=== PATIENT | male | born 1995 | race Two or more races ===

== ENCOUNTER 2016-04-14 09:38 | Inpatient (IN) | payer OTHER ==
[2016-04-14] MEDS ORDERED: ONDANSETRON 4 MG/2 ML VIAL IVP ONE ×2 (09:44)
[2016-04-14] MEDS ORDERED: NS 1,000 ML IV ONE ×3 (09:44)
[2016-04-14 09:56] LABS: % IMMATURE GRANULYOCYTES 0.3 % (0.0-1.1); ABSOLUTE IMMATURE GRANULOCYTES 0.03 10^3/uL (0.00-0.10); ADD DIFF? NO; ADD MORPH? NO; ADD SCAN? NO; ATYPICAL LYMPHOCYTE FLAG 0 (0-99); FRAGMENT RBC FLAG 0 (0-99); HEMATOCRIT 41.6 % (40.0-51.0); HEMOGLOBIN 14.8 g/dL (13.7-17.5); LEFT SHIFT FLG 0 (0-99); LIPEMIA HEMOLYSIS FLAG 90 (0-99); MEAN CELL HEMOGLOBIN 29.1 pg (27.9-34.1); MEAN CELL HEMOGLOBIN CONCENTR. 35.6 g/dL (32.4-36.7); MEAN CELL VOLUME 81.9 fL (81.5-99.8); MEAN PLATELET VOLUME 10.6 fL (8.7-11.7); PLATELET CLUMPS FLAG 10 (0-99); PLATELET COUNT 205 10^3/uL (150-400); RED BLOOD CELL COUNT 5.08 10^6/uL (4.40-6.38); RED CELL DISTRIBUTION WIDTH 11.9 % (11.5-15.2)
[2016-04-14 10:31] LABS: ALANINE AMINOTRANSFERASE 39 IU/L (21-72); ALBUMIN 3.9 g/dL (3.5-5.0); ALKALINE PHOSPHATASE 104 IU/L (38-126); ANION GAP 13 mEq/L (8-16); ASPARTATE AMINOTRANSFERASE 37 IU/L (17-59); BILIRUBIN,TOTAL 0.5 mg/dL (0.1-1.4); BILIRUBIN-CONJUGATED 0.2 mg/dL (0.0-0.5); BILIRUBIN-UNCONJUGATED 0.3 mg/dL (0.0-1.1); CALCIUM 9.6 mg/dL (8.5-10.4); CARBON DIOXIDE 24 mEq/l (22-31); CHLORIDE 103 mEq/L (97-110); CREATININE 4.2 mg/dL (0.7-1.3); GLOMERULAR FILTRATION RATE 18; GLUCOSE 103 mg/dL (70-100); POTASSIUM 4.6 mEq/L (3.5-5.2); SODIUM 140 mEq/L (134-144); TOTAL PROTEIN 6.9 g/dL (6.3-8.2)
--- NOTE | 2016-04-14 11:29 | CT ---
Unenhanced CT Scan of the Abdomen and Pelvis (Renal Stone Protocol) Clinical History: 21-year-old male with bilateral flank pain with nausea and vomiting for three days. There is no hematuria or pyuria, although the patient is in renal failure with a creatinine of 4.0. Technique: And unenhanced helical CT scan was obtained from lung bases inferiorly to the proximal fem ora with images reformatted at 5.00 and 1.50 mm increments, and reviewed at a variety of window/level settings. Parasagittal and paracoronal reconstructed images were reviewed on the workstation. The DF OV is 33.6 cm. A dose reduction protocol was used. Comparison Study: None. Findings: Unenhanced CT Scan of the Abdomen: The lung bases are clear. There is no pleural or pericardial effus ion. There is a catwalk appearance to the left hepatic lobe terminating anterior to the spleen, a nor mal variant. There are no hepatic, pancreatic, splenic, adrenal, or renal calculi. There is no hydron ephrosis or perinephric inflammation. There is no ascites or pneumoperitoneum. The abdominal aorta an d the IVC are normal in caliber. There is moderate constipation. There is no abnormal small bowel dil atation. The stomach is incompletely distended, which may account for its mildly thickened wall. Ther e is a small amount of intraluminal fluid within the stomach. There is no retroperitoneal or mesenter ic adenopathy. The osseous structures are age-appropriate. Unenhanced CT Scan of the Pelvis: The urinary bladder is moderately distended. The prostate gland and seminal vesicles are normal. There is no urinary bladder calculus or distal ureterolithiasis. The ap pendix is identified on axial series 4 images 182-204, and is normal. There is no free fluid. There a re some shotty inguinal lymph nodes, which are not pathologically enlarged. The osseous structures ar e normal. Impression: 1. There is no evidence of nephrolithiasis or obstructive uropathy. This does not exclude the diagnos is of pyelonephritis or medical renal disease. 2. Moderate constipation. 3. Normal CT appearance of the appendix. Results were discussed with Ry Grajeda PA-C. Attention: This CT examination is specifically designed to evaluate patients who are clinically susp ected of having acute obstructive uropathy. This examination does not use radiographic contrast, and as such, provides only a limited evaluation of the abdomen, pelvis, and retroperitoneum. If there i s further clinical suspicion for pathological conditions other than obstructive uropathy, a complete CT evaluation of the abdomen and pelvis utilizing intravenous, oral, and rectal contrast should be co nsidered. A test result has been communicated to a licensed care provider and documented in [employer], 11:18:41 A M, 04/14/2016, [employer] Message ID [id number].
[2016-04-14 11:32] LABS: COLOR PALE YELLOW; LEUKOCYTE ESTERASE,URINE NEGATIVE (NEGATIVE); NITRITE,URINE NEGATIVE (NEGATIVE)
--- NOTE | 2016-04-14 11:32 | EDPHY ---
H & P Stated Complaint: N/V/D for 3 days & lower back pain - Personal History Current Tetanus/Diphtheria Vaccine: Unsure Current Tetanus Diphtheria and Acellular Pertussis (TDAP): Unsure - Medical/Surgical History Hx Asthma: No Hx Chronic Respiratory Disease: No Hx Diabetes: No Hx Cardiac Disease: No Hx Renal Disease: No Hx Cirrhosis: No Hx Alcoholism: No Hx HIV/AIDS: No Hx Splenectomy or Spleen Trauma: No - Social History Smoking Status: Never smoked Time Seen by Provider: 04/14/16 09:44 HPI/ROS: Chief complaint: Nausea, vomiting and diarrhea History of present illness: This is an otherwise healthy 21-year-old male who presents to the emergency department for evaluation nausea, vomiting and diarrhea. Patient reports the onset of symptoms approximately 3 days ago. He describes multiple episodes of both vomiting and diarrhea described as nonbloody. He has had associated severe low back pain. He does state he lifts weights and is wondering if this is related. Patient does report 2 weeks ago he went to [facility]. He denies alleviating factors. He denies other associated signs or symptoms including no fevers, no urinary symptoms. He denies recent antibiotic use. He denies sick contacts. Review of systems: A 10 point review of systems was obtained and other than described above was negative (Ry Grajeda) - Social History Additional Social History: Patient is a student (Ry Grajeda) - Physical Exam Exam: General Appearance: Alert, nontoxic. Eyes: Pupils equal and round no pallor or injection. ENT, Mouth: Mucous membranes moist. Respiratory: There are no retractions, lungs are clear to auscultation. Cardiovascular: Regular rate and rhythm. Gastrointestinal: Abdomen is soft and non tender, no masses, bowel sounds normal. Genitourinary: No CVA tenderness Neurological: Alert and oriented. Strength and sensation intact and symmetrical. Skin: Warm and dry, no rashes. Musculoskeletal: Neck is supple non tender. Extremities are symmetrical, full range of motion. Psychiatric: Patient is oriented X 3, there is no agitation. (Ry Grajeda) Constitutional: Initial Vital Signs Temperature (C) 36.4 C 04/14/16 09:40 Heart Rate 56 L 04/14/16 09:40 Respiratory Rate 16 04/14/16 09:40 Blood Pressure 161/84 H 04/14/16 09:40 O2 Sat (%) 95 04/14/16 09:40 Allergies/Adverse Reactions: No Known Allergies Allergy (Unverified 04/14/16 09:42) Medical Decision Making - Diagnostics Imaging: CT scan of the abdomen and pelvis is unremarkable (Ry Grajeda) ED Course/Re-evaluation: The patient was evaluated and managed by the physician's cement tester assistant. My cosignature indicates that I reviewed the chart and I agree with the findings and plan of care as documented. I am the secondary supervising physician. ( Tia Ingram) Patient discussed with my secondary supervising physician Dr. Tia Ingram. Patient presents to the emergency department for nausea, vomiting and diarrhea as well as low back pain. Evaluation reveals patient appears to be in renal failure. It is not clear as to the cause at this time. The rest of his lab studies, urine and CT scan of the abdomen pelvis are unremarkable. He has been IV hydrated. He will be admitted to the hospitalist service for further evaluation and care. Plan has been discussed with the patient who voiced understanding and agreement with it. (Ry Grajeda) Differential Diagnosis: Included but not limited to gastritis, gastroenteritis, biliary tract disease, pancreatitis, urinary tract disease, renal failure multiple etiologies including hypovolemia, infectious pathology, intrinsic pathology (Ry Grajeda) - Data Points Laboratory Results: Laboratory Results 04/14/16 09:47 04/14/16 09:47 04/14/16 04/14/16 11:20 09:47 WBC 10.05 H 10^3/uL (3.80-9.50) RBC 5.08 10^6/uL (4.40-6.38) Hgb 14.8 g/dL (13.7-17.5) Hct 41.6 % (40.0-51.0) MCV 81.9 fL (81.5-99.8) MCH 29.1 pg (27.9-34.1) MCHC 35.6 g/dL (32.4-36.7) RDW 11.9 % (11.5-15.2) Plt Count 205 10^3/uL (150-400) MPV 10.6 fL (8.7-11.7) Neut % (Auto) 73.1 % (39.3-74.2) Lymph % (Auto) 15.0 % (15.0-45.0) Lane % (Auto) 10.0 % (4.5-13.0) Eos % (Auto) 1.3 % (0.6-7.6) Baso % (Auto) 0.3 % (0.3-1.7) Nucleat RBC Rel Count 0.0 % (0.0-0.2) Absolute Neuts (auto) 7.34 H 10^3/uL (1.70-6.50) Absolute Lymphs (auto) 1.51 10^3/uL (1.00-3.00) Absolute Monos (auto) 1.01 H 10^3/uL (0.30-0.80) Absolute Eos (auto) 0.13 10^3/uL (0.03-0.40) Absolute Basos (auto) 0.03 10^3/uL (0.02-0.10) Absolute Nucleated RBC 0.00 10^3/uL (0-0.01) Immature Gran % 0.3 % (0.0-1.1) Immature Gran # 0.03 10^3/uL (0.00-0.10) Sodium 140 mEq/L (134-144) Potassium 4.6 mEq/L (3.5-5.2) Chloride 103 mEq/L (97-110) Carbon Dioxide 24 mEq/l (22-31) Anion Gap 13 mEq/L (8-16) BUN 49 H mg/dL (7-23) Creatinine 4.2 H mg/dL (0.7-1.3) Estimated GFR 18 Glucose 103 H mg/dL (70-100) Calcium 9.6 mg/dL (8.5-10.4) Total Bilirubin 0.5 mg/dL (0.1-1.4) Conjugated Bilirubin 0.2 mg/dL (0.0-0.5) Unconjugated Bilirubin 0.3 mg/dL (0.0-1.1) AST 37 IU/L (17-59) ALT 39 IU/L (21-72) Alkaline Phosphatase 104 IU/L (38-126) Creatine Kinase 200 IU/L (0-224) Total Protein 6.9 g/dL (6.3-8.2) Albumin 3.9 g/dL (3.5-5.0) Lipase 64.0 IU/L (23-300) Urine Color Pending Urine Appearance Pending Urine pH Pending Ur Specific [place] Pending Urine Protein Pending Urine Ketones Pending Urine Blood Pending Urine Nitrate Pending Urine Bilirubin Pending Urine Urobilinogen Pending Ur Leukocyte Esterase Pending Ur Culture Indicated? Pending Urine Glucose Pending Medications Given: Discontinued Medications Sodium Chloride (Ns) 1,000 mls @ 0 mls/hr IV ONCE ONE PRN Reason: Wide Open Stop: 04/14/16 09:45 Last Admin: 04/14/16 09:57 Dose: 1,000 mls Sodium Chloride (Ns) 1,000 mls @ 0 mls/hr IV ONCE ONE PRN Reason: Wide Open Stop: 04/14/16 09:45 Last Admin: 04/14/16 10:21 Dose: 1,000 mls Ondansetron HCl (Zofran) 4 mg IVP EDNOW ONE Stop: 04/14/16 09:45 Last Admin: 04/14/16 10:21 Dose: 4 mg Ondansetron HCl (Zofran) 4 mg IVP EDNOW ONE Stop: 04/14/16 09:45 Last Admin: 04/14/16 10:50 Dose: 4 mg Departure - Departure Disposition: [facility] Acute Clinical Impression: Vomiting and diarrhea, Renal failure Condition: Fair
[2016-04-14] MEDS ORDERED: HYDROCODONE/APAP 5/325 TAB PO PRN (12:44)
[2016-04-14] MEDS: ACETAMINOPHEN 325 MG TAB PO PRN ×2 (12:49→19:43)
[2016-04-14] MEDS: PANTOPRAZOLE SODIUM 40 MG TAB PO SCH (13:41)
[2016-04-14] MEDS: HEPARIN 5,000 UNIT/0.5 ML SYR SC SCH ×2 (13:41→20:57)
[2016-04-14 14:23] LABS: ANION GAP 9 mEq/L (8-16); CALCIUM 8.4 mg/dL (8.5-10.4); CARBON DIOXIDE 23 mEq/l (22-31); CHLORIDE 109 mEq/L (97-110); CREATININE 3.7 mg/dL (0.7-1.3); GLOMERULAR FILTRATION RATE 21; GLUCOSE 115 mg/dL (70-100); POTASSIUM 5.1 mEq/L (3.5-5.2); SODIUM 141 mEq/L (134-144)
--- NOTE | 2016-04-14 15:15 | GHP ---
[f rep st] HISTORY AND PHYSICAL DATE OF ADMISSION: 04/14/2016 CHIEF COMPLAINT: Back pain and nausea. HISTORY OF PRESENT ILLNESS: This is a 21-year-old male, with no significant past medical history, wh o presents after developing nausea and vomiting for the 48 hours prior to presentation. The patient reports that he was working out performing strenuous weightlifting regimen, when he developed sudden onset of nausea and several episodes of emesis which made him feel better. He returned completed his weightlifting workout, then returned home and developed persistent nausea and vomiting through the c ourse of the next 24 hours. Denied any coffee-grounds emesis. Simply bilious vomit. The patient wa s not able to tolerate any p.o. intake for the subsequent 48 hours and developed some discomfort in h is bilateral lower back, which prompted his presentation to the emergency department. Endorses subjective fevers and chills in the outpatient setting. Mild abdominal discomfort associate d with his retching. Denied any shortness of breath, chest pain, dysphagia, vision changes. Does no te some mild headache after vomiting. Denies any upper respiratory infection or symptoms. Denies so re throat, rhinorrhea or cough. Has had 1 sick contact, which was a female friend, also with short-t erm gastrointestinal illness. The patient denies any significant recent changes in his workout regim en. Lifts heavily but consistently. Denies significant use of ibuprofen or plxw-iet-vhlfgnw anti-in flammatories. PAST MEDICAL HISTORY: None. SOCIAL HISTORY: Negative for tobacco. Rare alcohol. No illicit drugs or marijuana. FAMILY HISTORY: Negative for kidney disease. REVIEW OF SYSTEMS: A 10-point review of systems is negative with the exception of that reported in H PI. PHYSICAL EXAMINATION: VITAL SIGNS: Blood pressure 162/76, heart rate 51, respiratory rate 16, 94% o n room air, 36.7. GENERAL: This is a young healthy-appearing male in no acute distress. HEENT: No table for dry mucous membranes. Eye exam is negative for any icterus. CARDIAC: Patient is regular rate and rhythm. PULMONARY: Good respiratory effort. Clear to auscultation bilaterally. GASTROINT ESTINAL: Positive bowel sounds. Abdomen is soft and nontender in all 4 quadrants. MUSCULOSKELETAL: Negative for any lower extremity edema. SKIN: Negative for any rashes. NEUROLOGIC: Patient is a lert and oriented x3. PSYCHIATRIC: He is pleasant and cooperative on interview and examination. LABORATORY: White count 10.05, hematocrit 41.6, platelets of 205. Sodium of 140, creatinine of 4.2, baseline unknown. Liver function tests are normal. Potassium 4.6. CT of the abdomen and pelvis without contrast shows no evidence of nephrolithiasis or obstructive uro romy. No hydronephrosis. Personally reviewed and interpreted the CT. ASSESSMENT AND PLAN: This is a 21-year-old male presenting with nausea, vomiting, and lower back diogo n. 1. Acute kidney injury. Patient has marked elevation of creatinine, at 4.2, with no known history o f renal disease. Based on his history of suspect this is likely volume related to his gastrointestin al symptoms and volume loss. Will send urinalysis. Aggressively fluid resuscitate with normal salin e, and recheck his renal function in the morning. If not improving, then would involve Nephrology. My suspicion for post GN/glomerulonephritis or other causes is low. Will send a CK to rule out rhabd o as a possible cause related to his weightlifting regimens. Additionally rule out acute infection. 2. Acute nausea and vomiting, presumed secondary to a viral gastroenteritis. The patient has not boyce d significant diarrheal symptoms with this and his nausea has markedly improved upon arrival to the e mergency department. Will, again, fluid resuscitate, treat with IV antiemetics as needed. 3. Flank pain. Suspect this is related to his acute kidney injury. I do not see a clear descriptio n for hydronephrosis or stones as an explanation. Will follow clinically with treatment of his dehyd ration. 4. Prophylaxis with heparin subcu as his renal function makes Lovenox contraindicated. 5. Diet: Regular. DISPOSITION: I expect greater than 2 midnights as the patient is requiring aggressive fluid resuscit ation and may need additional diagnostics and/or consultation with Nephrology if not rapidly responsi ve to fluid resuscitation. I have discussed the case with the emergency room physician. Patient ofelia berkowitz be triaged to the medical-surgical floor for care. /[id number]/MODL
[2016-04-14] MEDS: ONDANSETRON 4 MG/2 ML VIAL IVP PRN (17:23)
[2016-04-14] MEDS: ONDANSETRON DISINTEGRATING 4 MG TAB PO PRN (19:44)
[2016-04-14] MEDS: NS 1,000 ML IV SCH (23:28)
[2016-04-15] MEDS: ONDANSETRON DISINTEGRATING 4 MG TAB PO PRN (02:39)
[2016-04-15] MEDS: ACETAMINOPHEN 325 MG TAB PO PRN (02:39)
[2016-04-15 05:27] LABS: ANION GAP 7 mEq/L (8-16); CALCIUM 8.9 mg/dL (8.5-10.4); CARBON DIOXIDE 22 mEq/l (22-31); CHLORIDE 111 mEq/L (97-110); CREATININE 3.8 mg/dL (0.7-1.3); GLOMERULAR FILTRATION RATE 20; GLUCOSE 78 mg/dL (70-100); SODIUM 140 mEq/L (134-144)
[2016-04-15] MEDS: HEPARIN 5,000 UNIT/0.5 ML SYR SC SCH ×4 (05:31→21:52)
[2016-04-15] MEDS: NS 1,000 ML IV SCH ×2 (05:31→16:41)
[2016-04-15] MEDS: PANTOPRAZOLE SODIUM 40 MG TAB PO SCH (09:27)
--- NOTE | 2016-04-15 11:10 | PDGENHP ---
History and Physical - Chief Complaint MALIK - History of Present Illness Mr. Rodríguez is a 21 yo M with no significant past medical history who presented yesterday with N/V and back pain. Pt states that he had just gotten back from [place] 2 weeks ago, was exposed to his twin brother who was sick and his brother's girlfriend who was ill with vomiting. Pt states that he had been having some nausea for the past one week. Four days ago after a workout he started having abrupt vomiting, which has continued since then, today not vomiting. He also started to have pain in his lower back. He notes having some mild diarrhea as well. He tried to keep drinking fluids but could not keep down food, had a lot of vomiting. He came to ED yesterday, noted to have MALIK with Cr up to 4.2, baseline was 1.0 last checked in 06/2015. Pt states that he never stopped urinating that he can tell but he did start to get very dark urine that burned before he came into ED. Overnight he was given IVFs and has been urinating more, but not recorded. He states that his urine is more clear now. Cr down to 3.8 this am. He is still having some back pain. He had not been taking NSAIDs except once in these past few days. History Information - Allergies/Home Medication List Allergies/Adverse Reactions: No Known Allergies Allergy (Unverified 04/14/16 09:42) Home Medications: Ibuprofen [Motrin (*)] 400 mg PO ONCE 04/14/16 [Last Taken 04/14/16 08:00] I have personally reviewed and updated: medical history - Past Medical History no pertinent PMH - Surgical History Reports: no pertinent surgical hx - Family History Additional family history: Sister with recurrent kidney infections - Social History Smoking Status: Never smoked Drug Use: Marijuana Review of Systems ROS: 10pt was reviewed & negative except for what was stated in HPI & below Physical Exam Temp Pulse Resp BP Pulse Ox 36.4 C 49 L 17 158/71 H 92 04/15/16 08:00 04/15/16 08:00 04/15/16 08:00 04/15/16 08:00 04/15/16 08:00 Constitutional: no apparent distress, appears nourished Eyes: PERRL, anicteric sclera, EOMI Ears, Nose, Mouth, Throat: moist mucous membranes, no oral mucosal ulcers Cardiovascular: regular rate and rhythym, no murmur, rub, or gallop, pulses symmetric bilaterally Peripheral Pulses: 2+: dorsalis-pedis (R), dorsalis-pedis (L) Respiratory: no respiratory distress, no rales or rhonchi, clear to auscultation Gastrointestinal: normoactive bowel sounds, soft, non-tender abdomen, other ( mild lower back TTP) Skin: warm, normal color, no rashes or abrasions Musculoskeletal: full muscle strength, no joint effusions Neurologic: AAOx3, CN II-XII Intact, No asterixes Psychiatric: interacting appropriately, not anxious, not encephalopathic, thought process linear Lab Data & Imaging Review 04/14/16 09:47 04/15/16 04:30 WBC 10.05 10^3/uL (3.80-9.50) H 04/14/16 09:47 RBC 5.08 10^6/uL (4.40-6.38) 04/14/16 09:47 Hgb 14.8 g/dL (13.7-17.5) 04/14/16 09:47 Hct 41.6 % (40.0-51.0) 04/14/16 09:47 MCV 81.9 fL (81.5-99.8) 04/14/16 09:47 MCH 29.1 pg (27.9-34.1) 04/14/16 09:47 MCHC 35.6 g/dL (32.4-36.7) 04/14/16 09:47 RDW 11.9 % (11.5-15.2) 04/14/16 09:47 Plt Count 205 10^3/uL (150-400) 04/14/16 09:47 MPV 10.6 fL (8.7-11.7) 04/14/16 09:47 Neut % (Auto) 73.1 % (39.3-74.2) 04/14/16 09:47 Lymph % (Auto) 15.0 % (15.0-45.0) 04/14/16 09:47 [place] % (Auto) 10.0 % (4.5-13.0) 04/14/16 09:47 Eos % (Auto) 1.3 % (0.6-7.6) 04/14/16 09:47 Baso % (Auto) 0.3 % (0.3-1.7) 04/14/16 09:47 Nucleat RBC Rel Count 0.0 % (0.0-0.2) 04/14/16 09:47 Absolute Neuts (auto) 7.34 10^3/uL (1.70-6.50) H 04/14/16 09:47 Absolute Lymphs (auto) 1.51 10^3/uL (1.00-3.00) 04/14/16 09:47 Absolute Monos (auto) 1.01 10^3/uL (0.30-0.80) H 04/14/16 09:47 Absolute Eos (auto) 0.13 10^3/uL (0.03-0.40) 04/14/16 09:47 Absolute Basos (auto) 0.03 10^3/uL (0.02-0.10) 04/14/16 09:47 Absolute Nucleated RBC 0.00 10^3/uL (0-0.01) 04/14/16 09:47 Immature Gran % 0.3 % (0.0-1.1) 04/14/16 09:47 Immature Gran # 0.03 10^3/uL (0.00-0.10) 04/14/16 09:47 Sodium 140 mEq/L (134-144) 04/15/16 04:30 Potassium 5.0 mEq/L (3.5-5.2) 04/15/16 04:30 Chloride 111 mEq/L (97-110) H 04/15/16 04:30 Carbon Dioxide 22 mEq/l (22-31) 04/15/16 04:30 Anion Gap 7 mEq/L (8-16) 04/15/16 04:30 BUN 36 mg/dL (7-23) H 04/15/16 04:30 Creatinine 3.8 mg/dL (0.7-1.3) H 04/15/16 04:30 Estimated GFR 20 04/15/16 04:30 Glucose 78 mg/dL (70-100) 04/15/16 04:30 Calcium 8.9 mg/dL (8.5-10.4) 04/15/16 04:30 Phosphorus 4.4 mg/dL (2.5-4.5) D 04/15/16 04:30 Magnesium 2.0 mg/dL (1.6-2.3) 04/15/16 04:30 Total Bilirubin 0.5 mg/dL (0.1-1.4) 04/14/16 09:47 Conjugated Bilirubin 0.2 mg/dL (0.0-0.5) 04/14/16 09:47 Unconjugated Bilirubin 0.3 mg/dL (0.0-1.1) 04/14/16 09:47 AST 37 IU/L (17-59) 04/14/16 09:47 ALT 39 IU/L (21-72) 04/14/16 09:47 Alkaline Phosphatase 104 IU/L (38-126) 04/14/16 09:47 Creatine Kinase 159 IU/L (0-224) 04/14/16 13:54 Total Protein 6.9 g/dL (6.3-8.2) 04/14/16 09:47 Albumin 3.9 g/dL (3.5-5.0) 04/14/16 09:47 Lipase 64.0 IU/L (23-300) 04/14/16 09:47 Urine Color PALE YELLOW 04/14/16 11:20 Urine Appearance CLEAR 04/14/16 11:20 Urine pH 6.0 (5.0-7.5) 04/14/16 11:20 Ur Specific [place] 1.006 (1.002-1.030) 04/14/16 11:20 Urine Protein NEGATIVE (NEGATIVE) 04/14/16 11:20 Urine Ketones NEGATIVE (NEGATIVE) 04/14/16 11:20 Urine Blood NEGATIVE (NEGATIVE) 04/14/16 11:20 Urine Nitrate NEGATIVE (NEGATIVE) 04/14/16 11:20 Urine Bilirubin NEGATIVE (NEGATIVE) 04/14/16 11:20 Urine Urobilinogen NEGATIVE EU (0.2-1.0) 04/14/16 11:20 Ur Leukocyte Esterase NEGATIVE (NEGATIVE) 04/14/16 11:20 Ur Culture Indicated? NOT INDICATED (NI) 04/14/16 11:20 Urine Glucose NEGATIVE (NEGATIVE) 04/14/16 11:20 Assessment & Plan Assessment: Assessment/Plan: MALIK: Pt with baseline Cr of 1.0 last year, now with Cr up to 4.2 in setting of N /V, likely has a gastroenteritis. Most likely prerenal, no protienuria or hematuria on UA, improving with IVFs given but slowly. CT abd with no hydronephrosis. - Would continue IVFs as you are, NS @ 100ml/hr. - Encourage fluid intake. - Strict I/Os. - Will check urine electrolytes, urine creatinine, urine protein. - Will continue to monitor. - Avoid MOM, morphine, demerol, NSAIDs, contrast, aminoglycosides, fleets, ACEi /ARB, and other nephrotoxins. Thank you for the interesting consult. Nephrology will continue to follow, please call if you have any additional questions or concerns.
[2016-04-15] MEDS: ONDANSETRON 4 MG/2 ML VIAL IVP PRN ×2 (15:15→20:23)
--- NOTE | 2016-04-15 15:23 | HOSPPROG ---
Hospitalist Progress Note Assessment/Plan: # MALIK - in setting of GI illness - suspecting ATN creatinine 4.2-> 3.8 this am with hydration - UA negative CT abd ( personally reviewed and interpreted) no abnormalities of the kidneys oxygen saturations 94% on room air - consult Nephrology for Derek - continue IVF # flank pain- suspecting related to a MALIK however imaging benign - continue p.r.n. pain meds # proph - heparin sq if not ambulating # diet - regular # dispo - > 2MN as MALIK not improved this am need continued IVF and renal consultation I have discussed the case with Nephrology they will consult and leave recommendations regarding treatment and additional diagnostics Subjective: persistent intermittent flank pain Objective: Vital Signs Temp Pulse Resp BP Pulse Ox 36.9 C 45 L 16 128/74 H 94 04/15/16 12:00 04/15/16 12:00 04/15/16 12:00 04/15/16 12:00 04/15/16 12:00 Laboratory Results 04/15/16 04:30 04/14/16 04/15/16 04/16/16 05:59 05:59 05:59 Intake Total 1750 Balance 1750 - Physical Exam Constitutional: appears nourished Eyes: anicteric sclera Ears, Nose, Mouth, Throat: moist mucous membranes Cardiovascular: regular rate and rhythym Respiratory: no respiratory distress Gastrointestinal: normoactive bowel sounds, soft, non-tender abdomen Genitourinary: no bladder fullness Skin: warm, normal color Musculoskeletal: No asymmetric calves Neurologic: AAOx3 Psychiatric: interacting appropriately, not anxious Lymph, Heme, Immunologic: no cervical LAD ICD10 Worksheet Patient Problems: Problems Problem Status Diagnosed Renal failure Acute Vomiting and diarrhea Acute
[2016-04-15 17:34] LABS: PHENCYCLIDINE URINE BCH < 6 ng/ml (NEGATIVE); TETRAHYDROCANNABINOL URINE 61 ng/mL (NEGATIVE)
[2016-04-15 18:28] LABS: PHENCYCLIDINE URINE BCH NEGATIVE (NEGATIVE); TETRAHYDROCANNABINOL URINE 61 ng/mL (NEGATIVE)
--- NOTE | 2016-04-15 22:49 | US ---
Bilateral duplex Doppler sonography of the kidneys History: Acute renal failure. Findings: Right kidney measures 10.9 cm length x 5.7 cm transverse x 6.1 cm AP. No masses. Color and pulsed Doppler interrogation of segmental renal arteries demonstrate normal acceleration times of pul sed Doppler waveforms, with no evidence of renal artery stenosis. Trace of free fluid is noted cephal ad to the right kidney. Left kidney measures 11.8 cm length x 5.8 cm transverse x 5.5 cm AP. Pulsed Doppler waveforms are nor mal, with brisk acceleration times. Before voiding, the volume of the urinary bladder is estimated to be 221 mL. After voiding, the volum e in the urinary bladder is estimated to be 7 mL. Impression: Normal.
[2016-04-16] MEDS: ACETAMINOPHEN 325 MG TAB PO PRN (04:34)
[2016-04-16] MEDS: NS 1,000 ML IV SCH (04:34)
[2016-04-16 05:56] LABS: ANION GAP 11 mEq/L (8-16); CALCIUM 8.9 mg/dL (8.5-10.4); CARBON DIOXIDE 22 mEq/l (22-31); CHLORIDE 110 mEq/L (97-110); CREATININE 2.8 mg/dL (0.7-1.3); GLOMERULAR FILTRATION RATE 28; GLUCOSE 84 mg/dL (70-100); POTASSIUM 4.7 mEq/L (3.5-5.2); SODIUM 143 mEq/L (134-144)
[2016-04-16] MEDS: PANTOPRAZOLE SODIUM 40 MG TAB PO SCH (08:33)
[2016-04-16] MEDS: HEPARIN 5,000 UNIT/0.5 ML SYR SC SCH ×2 (13:35→20:24)
--- NOTE | 2016-04-16 13:35 | SOAPPROG ---
SOAP Progress Note Assessment/Plan: Assessment:Plan: ARF-due to dehydration -better -Still not eating and drinking so well per his mother -would keep inpatient next 24 hours to ensure this is better -labs in morning -outpatient labs again next Friday -follow up in Nephrology as outpatient in 10-14 days to ensure no residual kidney damage 04/16/16 13:28 Subjective: out of room Objective: Vital Signs Temp Pulse Resp BP Pulse Ox 36.7 C 41 L 14 170/81 H 94 04/16/16 12:00 04/16/16 12:00 04/16/16 12:00 04/16/16 12:00 04/16/16 12:00 Laboratory Results 04/16/16 04:28 04/15/16 04/16/16 04/17/16 05:59 05:59 05:59 Intake Total 1750 2650 Output Total 3200 1999 Balance 1750 -550 -2000 ICD10 Worksheet Patient Problems: Problems Problem Status Diagnosed Renal failure Acute Vomiting and diarrhea Acute
--- NOTE | 2016-04-16 20:58 | HOSPPROG ---
Hospitalist Progress Note Assessment/Plan: # MALIK - in setting of GI illness - suspecting ATN creatinine 4.2-> 2.8 this am with hydration - UA negative CT abd ( personally reviewed and interpreted) no abnormalities of the kidneys US (reviewed ) normal kidneys oxygen saturations 94% on room air - discontinue IVF this pm recheck renal fucntion soniya # flank pain- suspecting related to a MALIK however imaging benign - continue p.r.n. pain meds # proph - heparin sq if not ambulating # diet - regular # dispo - > 2MN as MALIK requiring prolonged IVF I have discussed the case with Nephrology we will montiro this evening as patient taking very little PO Subjective: pain slightly improved Objective: Vital Signs Temp Pulse Resp BP Pulse Ox 36.8 C 54 L 16 184/72 H 97 04/16/16 20:00 04/16/16 20:00 04/16/16 20:00 04/16/16 20:00 04/16/16 20:00 Laboratory Results 04/16/16 04:28 04/15/16 04/16/16 04/17/16 05:59 05:59 05:59 Intake Total 1750 2650 1150 Output Total 3200 4600 Balance 1750 -550 -3450 - Physical Exam Constitutional: appears nourished Eyes: anicteric sclera Ears, Nose, Mouth, Throat: moist mucous membranes, hearing normal Cardiovascular: regular rate and rhythym Respiratory: no respiratory distress Gastrointestinal: normoactive bowel sounds Genitourinary: no bladder fullness Skin: warm, normal color Musculoskeletal: No asymmetric calves Neurologic: AAOx3 Psychiatric: interacting appropriately Lymph, Heme, Immunologic: no cervical LAD ICD10 Worksheet Patient Problems: Problems Problem Status Diagnosed Renal failure Acute Vomiting and diarrhea Acute
[2016-04-17] MEDS: HEPARIN 5,000 UNIT/0.5 ML SYR SC SCH (00:36)
[2016-04-17 05:39] LABS: ANION GAP 11 mEq/L (8-16); CALCIUM 9.1 mg/dL (8.5-10.4); CARBON DIOXIDE 25 mEq/l (22-31); CHLORIDE 108 mEq/L (97-110); CREATININE 2.1 mg/dL (0.7-1.3); GLOMERULAR FILTRATION RATE 40; GLUCOSE 108 mg/dL (70-100); POTASSIUM 4.4 mEq/L (3.5-5.2); SODIUM 144 mEq/L (134-144)
[2016-04-17] MEDS: PANTOPRAZOLE SODIUM 40 MG TAB PO SCH (07:53)
[2016-04-17 08:22] VITALS: BP 152/80; PULSE 40; RESP 14; TEMP 97.8; O2SAT 95
--- NOTE | 2016-04-17 10:59 | SOAPPROG ---
SOAP Progress Note Assessment/Plan: Assessment: 1. ARF. Likely ATN related to prolonged prerenal state, although cannot r/o occult substance ingestion (none that could cause edna seen on tox screen). Regardless, he is recovering. Renal u/s normal, CK normal, ua bland. Good UOP, Creat down to 2.1. Recommend avoidance of nsaids, ample fluid intake at home, labs at 1 and 2 wks and f/u in our office in [place] ~ 2wks. 2. N/V/D/flank pain. Possibly all viral illness. Resolving. Plan: 04/17/16 10:55 04/17/16 10:56 04/17/16 10:59 Subjective: Appetite better. Flank pain 04/09. No n/v/d. Objective: Vital Signs Temp Pulse Resp BP Pulse Ox 36.6 C 40 L 14 152/80 H 95 04/17/16 08:00 04/17/16 08:00 04/17/16 08:00 04/17/16 08:00 04/17/16 08:00 Laboratory Results 04/17/16 04:17 04/16/16 04/17/16 04/18/16 05:59 05:59 05:59 Intake Total 2650 1950 Output Total 3200 5100 600 Balance -550 -3150 -600 Comfortable young male walking around room RRR, no m/g/r CTAB Abdom soft, nt; mild R CVA tenderness No edema ICD10 Worksheet Patient Problems: Problems Problem Status Diagnosed Renal failure Acute Vomiting and diarrhea Acute
--- NOTE | 2016-04-17 17:49 | GDS ---
[f rep st] DISCHARGE SUMMARY DISCHARGE DIAGNOSES: Include: 1. Acute kidney injury, secondary to dehydration. 2. Flank pain, secondary to acute kidney injury. 3. Elevated blood pressure, secondary to acute kidney injury. HISTORY OF PRESENT ILLNESS: A 21-year-old male, who was presenting status post an acute GI illness, thought to be viral gastroenteritis, with complaints of flank pain. Patient was noted to have acute kidney injury with a creatinine of 4, and was admitted to the hospital. CONSULTATIVE SERVICES: Include Nephrology. PROCEDURES: On 04/14/2016, patient had a CT of the abdomen that showed normal kidneys. No hydroneph rosis or nephrolithiasis. On 04/15/2016, patient had a renal ultrasound that showed normal flow and normal-appearing kidneys. HOSPITAL COURSE BY ISSUE: 1. Acute kidney injury, presumed secondary to ATN: Patient was admitted had entirely bland urinalys is and imaging. Received aggressive fluid resuscitation. Over the course of the last 72 hours, has had improvement in his creatinine from 4 to 2.1. Expecting patient has ATN and slow response to flui d resuscitation. He will be discharged today with encouragement to take increased p.o. fluid intake. He will have a lab check performed on Friday of next week, which outpatient Nephrology will follow and a clinic appointment with them additionally next week. Patient has had near-resolution of his fl ank pain during this hospital stay. 2. Elevated blood pressures: Patient has intermittent elevations in his blood pressures. Nephrolog y is confident will see resolution of this with continued improvement in his kidney injury. Recommend ations were not to treat at the time of disposition and follow in the outpatient setting. MEDICATIONS AT THE TIME OF DISPOSITION: Please reference medication reconciliation printed on 2016. FOLLOWUP APPOINTMENTS: Include for a lab check on 04/22/2016 and a followup appointment in-clinic th at same week with Nephrology. I spent greater than 30 minutes in the planning and coordination of this discharge. /[id number]/MODL
== END 2016-04-17 11:38 | disposition home or self-care (01) | DRG 684 ==
LOC: F3N 12:13
PROVIDERS: ADMIT Hospitalist; ATTEND Hospitalist
DX: N17.0 Acute kidney failure with tubular necrosis (principal); A08.4 Viral intestinal infection, unspecified; E86.0 Dehydration; R03.0 Elevated blood-pressure reading, without diagnosis of hypertension
CPT/HCPCS: 80307; 96374; G0480; J2405